=== PATIENT | female | born 1980 | race Caucasian/White ===

== ENCOUNTER → 2023-12-10 | Outpatient (CLI) | payer MEDICAID, SELFPAY ==
[2023-12-10 15:39] LABS: Hematocrit 37.1 % (37-47); Hemoglobin 12.4 g/dL (12.0-15.0); Mean Corp Hgb Conc 33.4 g/dL (32-36); Mean Corpuscular Hgb 31.4 pg (27.0-32.0); Mean Corpuscular Volume 93.9 fL (81-99); Mean Platelet Vol. 9.9 fl (6.2-12.0); Platelet Count 177 K/mm3 (150-450); RBC Distribution Width CV 12.8 % (11.6-14.6); RBC Distribution Width SD 44.1 fl (35.1-43.9); Red Blood Count 3.95 M/mm3 (4.2-5.4); White Blood Count 7.7 K/mm3 (4.4-11.0)
[2023-12-10 16:27] LABS: Glucose Challenge Gest 1H 50g 87 mg/dL (70-140); Syphilis Antibodies Non-reactive
== END | disposition home or self-care (01) ==
PROVIDERS: Referring Provider Obstetrics & Gynecology; Visit Provider Obstetrics & Gynecology
DX: O09.899 Supervision of other high risk pregnancies, unspecified trimester (principal); Z36.9 Encounter for antenatal screening, unspecified; Z3A.00 Weeks of gestation of pregnancy not specified
CPT/HCPCS: 36415; 82950; 85027; 86780

== ENCOUNTER 2024-01-08 16:25 | Outpatient (CLI) | payer MEDICAID, SELFPAY ==
[2024-01-08 16:35] VITALS: BMI 29.6
[2024-01-08 16:56] VITALS: BP 127/72; PULSE 83; RESP 16; TEMP 36.8
[2024-01-08] MEDS: Betamethasone/Betamethasone 30 MG/5 ML Vial 12 MG IM (16:58)
== END 2024-01-08 17:02 | disposition home or self-care (01) ==
LOC: WPOUT 16:30 → WP 16:31
PROVIDERS: Referring Provider Advanced Practice Midwife; Visit Provider Advanced Practice Midwife
DX: O09.90 Supervision of high risk pregnancy, unspecified, unspecified trimester (principal); Z3A.00 Weeks of gestation of pregnancy not specified
CPT/HCPCS: 96372; 99221; G0378; J0702